=== PATIENT | male | born 1950 | race Caucasian/White ===

== ENCOUNTER 2018-11-30 10:08 | Emergency (ER) | payer MEDICARE, OTHER ==
[~2018-11-30] VITALS: Ht 182 cm; Wt 101.6 kg
--- NOTE | 2018-11-30 10:44 | ED Psychosocial ---
General Chief Complaint: Suicidal Ideation Risk Stated Complaint: SUICIDAL IDEATION Source: patient Exam Limitations: no limitations (LILIAN LONGORIA DO) History of Present Illness Date Seen by Provider: Nov 30, 2018 Time Seen by Provider: 10:25 Initial Comments The patient is a pleasant 68-year-old male presents for evaluation of depression and suicidal thoughts. He states that he was recently admitted to the [facility] in [place] for suicidal thoughts. He states that normally when he is taking his medications he does not have thoughts of self-harm. He currently is thinking about cutting his arms. He states that his medications were all refilled by the [facility] when he was discharged but he lost all of the prescriptions so has been off of his medications for the last few weeks. He denies any homicidal thoughts and is calm and answering questions appropriately. He is alert and oriented 4, calm, and appears to be in no distress this time. Timing/Duration: just prior to arrival Associated Symptoms: suicidal ideation (LILIAN LONGORIA DO) Allergies and Home Medications Allergies Coded Allergies: Penicillins (Verified Allergy, Unknown, swelling, 11/30/18) Patient Home Medication List Home Medication List Reviewed: Yes (LILIAN LONGORIA DO) Review of Systems Constitutional: no symptoms reported EENTM: no symptoms reported Respiratory: no symptoms reported Cardiovascular: no symptoms reported Gastrointestinal: no symptoms reported Genitourinary: no symptoms reported Musculoskeletal: no symptoms reported Skin: no symptoms reported Psychiatric/Neurological: Anxiety, Depressed (LILIAN LONGORIA DO) All Other Systems Reviewed Negative Unless Noted: Yes (LILIAN LONGORIA DO) Past Rkiarom-Rmfexg-Xwfkjd Hx Past Med/Social Hx: Reviewed Nursing Past Med/Soc Hx (LILIAN LONGORIA DO) Patient Social History Recent Foreign Travel: No (LILIAN LONGORIA DO) Physical Exam Vital Signs - First Documented 11/30/18 10:56 Temp 36.8 Pulse 72 Resp 16 B/P (MAP) 141/79 (99) Pulse Ox 96 (PAUL CASEY MD) Capillary Refill : (LILIAN LONGORIA DO) Height, Weight, BMI Height: '" Weight: lbs. oz. kg; BMI Method: General Appearance: WD/WN, no apparent distress HEENT: PERRL/EOMI, pharynx normal Neck: non-tender, full range of motion, supple Respiratory: chest non-tender, lungs clear, normal breath sounds, no res piratory distress Cardiovascular: normal peripheral pulses, no edema, no JVD, other (irregular rhythm) Gastrointestinal: normal bowel sounds, non tender, soft Extremities: normal range of motion, non-tender, normal inspection, no pedal edema Neurologic/Psychiatric: no motor/sensory deficits, alert, normal mood/affect Behavior/Eye Contact: cooperative, good eye contact, normal speech Thoughts/Hallucinations: normal thought pattern, other (reports thoughts of self harm, flat affect) Skin: normal color, warm/dry (LILIAN LONGORIA DO) Progress/Results/Core Measures Results/Orders Lab Results Laboratory Tests Test 11/30/18 10:16 11/30/18 10:42 Range/Units Urine Color YELLOW Urine Clarity CLEAR Urine pH 7.5 5-9 Urine Specific [place] 1.015 L 1.016-1.022 Urine Protein NEGATIVE NEGATIVE Urine Glucose (UA) NEGATIVE NEGATIVE Urine Ketones NEGATIVE NEGATIVE Urine Nitrite NEGATIVE NEGATIVE Urine Bilirubin NEGATIVE NEGATIVE Urine Urobilinogen 1.0 NORMAL MG/DL Urine Leukocyte Esterase NEGATIVE NEGATIVE Urine RBC (Auto) NEGATIVE NEGATIVE Urine RBC NONE /HPF Urine WBC 5-10 H /HPF Urine Squamous Epithelial Cells RARE /HPF Urine Crystals NONE /LPF Urine Bacteria TRACE /HPF Urine Casts NONE /LPF Urine Mucus SMALL H /LPF Urine Culture Indicated YES Urine Opiates Screen NEGATIVE NEGATIVE Urine Oxycodone Screen NEGATIVE NEGATIVE Urine Methadone Screen NEGATIVE NEGATIVE Urine Propoxyphene Screen NEGATIVE NEGATIVE Urine Barbiturates Screen NEGATIVE NEGATIVE Ur Tricyclic Antidepressants Screen NEGATIVE NEGATIVE Urine Phencyclidine Screen NEGATIVE NEGATIVE Urine Amphetamines Screen NEGATIVE NEGATIVE Urine Methamphetamines Screen NEGATIVE NEGATIVE Urine Benzodiazepines Screen POSITIVE H NEGATIVE Urine Cocaine Screen NEGATIVE NEGATIVE Urine Cannabinoids Screen NEGATIVE NEGATIVE White Blood Count 7.2 4.3-11.0 10^3/uL Red Blood Count 4.69 4.35-5.85 10^6/uL Hemoglobin 14.9 13.3-17.7 G/DL Hematocrit 44 40-54 % Mean Corpuscular Volume 93 80-99 FL Mean Corpuscular Hemoglobin 32 25-34 PG Mean Corpuscular Hemoglobin Concent 34 32-36 G/DL Red Cell Distribution Width 12.9 10.0-14.5 % Platelet Count 213 130-400 10^3/uL Mean Platelet Volume 10.3 7.4-10.4 FL Neutrophils (%) (Auto) 63 42-75 % Lymphocytes (%) (Auto) 23 12-44 % Monocytes (%) (Auto) 10 0-12 % Eosinophils (%) (Auto) 4 0-10 % Basophils (%) (Auto) 1 0-10 % Neutrophils # (Auto) 4.5 1.8-7.8 X 10^3 Lymphocytes # (Auto) 1.7 1.0-4.0 X 10^3 Monocytes # (Auto) 0.7 0.0-1.0 X 10^3 Eosinophils # (Auto) 0.3 0.0-0.3 10^3/uL Basophils # (Auto) 0.0 0.0-0.1 10^3/uL Sodium Level 137 135-145 MMOL/L Potassium Level 4.4 3.6-5.0 MMOL/L Chloride Level 101 98-107 MMOL/L Carbon Dioxide Level 24 21-32 MMOL/L Anion Gap 12 5-14 MMOL/L Blood Urea Nitrogen 8 7-18 MG/DL Creatinine 0.89 0.60-1.30 MG/DL Estimat Glomerular Filtration Rate > 60 BUN/Creatinine Ratio 9 Glucose Level 124 H 70-105 MG/DL Calcium Level 9.6 8.5-10.1 MG/DL Corrected Calcium 9.2 8.5-10.1 MG/DL Total Bilirubin 0.4 0.1-1.0 MG/DL Aspartate Amino Transf (AST/SGOT) 15 5-34 U/L Alanine Aminotransferase (ALT/SGPT) 12 0-55 U/L Alkaline Phosphatase 85 40-136 U/L Total Protein 7.4 6.4-8.2 GM/DL Albumin 4.5 3.2-4.5 GM/DL Salicylates Level 2.4 L 5.0-20.0 MG/DL Acetaminophen Level < 10 L 10-30 UG/ML Serum Alcohol < 10 <10 MG/DL (PAUL CASEY MD) Micro Results Microbiology 11/30/18 Urine Culture - Preliminary, Resulted (PAUL CASEY MD) Medications Given in ED Current Medications Medications Dose Ordered Sig/Carlos Route Start Time Stop Time Status Last Admin Dose Admin Acetaminophen 1,000 mg ONCE ONCE PO 11/30/18 16:30 11/30/18 16:31 DC 11/30/18 16:43 1,000 MG (PAUL CASEY MD) Vital Signs/I&O 11/30/18 11/30/18 11/30/18 10:56 16:00 18:32 Temp 36.8 35.6 36.0 Pulse 72 63 60 Resp 16 18 18 B/P (MAP) 141/79 (99) 142/65 (90) 145/66 Pulse Ox 96 98 99 (PAUL CASEY MD) Progress Progress Note : Progress Note @1330 - Patient medically cleared for evaluation by mental health professional. @1430 - Greg the psychiatric riveting machine operator has evaluated the pt and feels that he meets inpatient voluntary criteria. I agree. The pt prefers a non-[facility] facility. Greg is going to look for placement. Pt calm, cooperative, no complaints. @1800 - Awaiting bed placement. Pt medically cleared and stable. Pt care transferred to Dr. Manish Casey at this time. (LILIAN LONGORIA DO) EKG : Comment @1042 - Sinus rhythm, rate of 76, normal axis, occasional PACs, no acute ischemic findings noted, no STEMI, reviewed and interpreted by myself (LILIAN LONGORIA DO) Departure Impression Primary Impression: Depression Additional Impression: Suicidal thoughts Disposition: 65 XFER TO PSYCH HOSP/UNIT Condition: Stable Transfer Time Spoke to Accepting Phy: 18:[address] Gracia accepted transfer to [facility] Transfer Time: 18:25 Transfer Facility: [facility] Method of Transfer: (PAUL CASEY MD) Departure-Patient Inst. Referrals: NO,LOCAL PHYSICIAN (PCP/Family) Primary Care Physician LILIAN LONGORIA DO Nov 30, 2018 10:44 PAUL CASEY MD Nov 30, 2018 18:31
[2018-11-30 10:53] LABS: HEMATOCRIT 44 % (40-54); HEMOGLOBIN 14.9 G/DL (13.3-17.7); LYMPHOCYTES % (AUTO) 23 % (12-44); MEAN CORPUSCULAR HEMOGLOBIN 32 PG (25-34); MEAN CORPUSCULAR HGB CONC 34 G/DL (32-36); MEAN CORPUSCULAR VOLUME 93 FL (80-99); MEAN PLATELET VOLUME 10.3 FL (7.4-10.4); NEUTROPHILS % (AUTO) 63 % (42-75); PLATELET COUNT 213 10^3/uL (130-400); RED CELL DISTRIBUTION WIDTH 12.9 % (10.0-14.5); WHITE BLOOD COUNT 7.2 10^3/uL (4.3-11.0)
[2018-11-30 10:54] LABS: BASOPHILS % (AUTO) 1 % (0-10); EOSINOPHILS # (AUTO) 0.3 10^3/uL (0.0-0.3); EOSINOPHILS % (AUTO) 4 % (0-10); LYMPHOCYTES # (AUTO) 1.7 X 10^3 (1.0-4.0); MONOCYTES # (AUTO) 0.7 X 10^3 (0.0-1.0); MONOCYTES % (AUTO) 10 % (0-12); NEUTROPHILS # (AUTO) 4.5 X 10^3 (1.8-7.8)
[2018-11-30 11:01] LABS: BILIRUBIN,URINE NEGATIVE (NEGATIVE); CLARITY,URINE CLEAR; COLOR,URINE YELLOW; GLUCOSE, URINE (UA) NEGATIVE (NEGATIVE); KETONES,URINE NEGATIVE (NEGATIVE); LEUKOCYTE ESTERASE ,URINE NEGATIVE (NEGATIVE); NITRITE,URINE NEGATIVE (NEGATIVE); PH,URINE 7.5 (5-9); PROTEIN,URINE NEGATIVE (NEGATIVE)
[2018-11-30 11:02] LABS: BACTERIA,URINE TRACE /HPF; SQUAMOUS EPITHELIAL CELL,UR RARE /HPF
[2018-11-30 11:04] LABS: BENZODIAZEPINES SCREEN URINE POSITIVE (NEGATIVE)
[2018-11-30 11:05] LABS: AMPHETAMINE SCREEN, URINE NEGATIVE (NEGATIVE); BARBITURATE SCREEN URINE NEGATIVE (NEGATIVE); CANNABINOID SCREEN, URINE NEGATIVE (NEGATIVE); COCAINE SCREEN URINE NEGATIVE (NEGATIVE); METHADONE STAT NEGATIVE (NEGATIVE); METHAMPHETAMINE SCREEN URINE S NEGATIVE (NEGATIVE); OPIATE SCREEN URINE NEGATIVE (NEGATIVE); OXYCODONE STAT NEGATIVE (NEGATIVE); PROPOXYPHENE STAT NEGATIVE (NEGATIVE); TRICYCLIC ANTIDEPRESSANTS SCRE NEGATIVE (NEGATIVE)
[2018-11-30 11:25] LABS: BUN/CREATININE RATIO 9; CARBON DIOXIDE 24 MMOL/L (21-32); CHLORIDE 101 MMOL/L (98-107); CREATININE SERUM 0.89 MG/DL (0.60-1.30); GFR ESTIMATED > 60; GLUCOSE 124 MG/DL (70-105); POTASSIUM 4.4 MMOL/L (3.6-5.0); SODIUM 137 MMOL/L (135-145)
[2018-11-30 11:26] LABS: ACETAMINOPHEN < 10 UG/ML (10-30); ALANINE AMINOTRANSFERASE 12 U/L (0-55); ALBUMIN 4.5 GM/DL (3.2-4.5); ALKALINE PHOSPHATASE 85 U/L (40-136); BILIRUBIN,TOTAL 0.4 MG/DL (0.1-1.0); CALCIUM 9.6 MG/DL (8.5-10.1); SALICYLATE 2.4 MG/DL (5.0-20.0); TOTAL PROTEIN 7.4 GM/DL (6.4-8.2)
--- NOTE | 2018-11-30 11:37 | NUR ---
Patient is medically cleared for screening per Dr Braden. Called [facility] at this time to request a screening. Kacey Garza at office states a screener will call the ED as soon as possible.
--- NOTE | 2018-11-30 11:43 | NUR ---
Received call from Kacey Pantoja, who states there will be a delay until a screener will be available for consultation.
--- NOTE | 2018-11-30 12:35 | NUR ---
Donn from [facility] called and stated he would be here at approximately 1330 to screen patient.
--- NOTE | 2018-11-30 14:35 | NUR ---
Donn from [facility] states he is done with screening and is recommending a voluntary admission at this time.
--- NOTE | 2018-11-30 15:57 | NUR ---
information faxed to [facility]
[2018-11-30 16:00] VITALS: BP 142/65
[2018-11-30] MEDS ORDERED: ACETAMINOPHEN 500 MG TAB (TYLENOL) PO ONE (16:30)
--- NOTE | 2018-11-30 17:00 | NUR ---
Received call from Donn at [facility]. [facility] is reviewing the patients chart for possible admission and Donn is also working on contacting other possible admission sites.
--- NOTE | 2018-11-30 18:18 | NUR ---
Received call from [facility] stating they have an accepting doctor, Dr Gracia. Nurse number to call report is [phone].
--- NOTE | 2018-11-30 18:27 | NUR ---
Called Donn at [facility] to inform of patient acceptance to [facility]. Donn statedd he would work on transportation and call as soon as he had transportation arranged.
--- NOTE | 2018-11-30 18:29 | NUR ---
Patient informed of acceptance to [facility].
--- NOTE | 2018-11-30 18:31 | NUR ---
Donn called and stated transportation has been arranged and tanker driver, Isabela, will be here at 8 pm to take patient to [facility].
[2018-11-30 20:17] VITALS: BP 157/65
== END 2018-11-30 20:43 ==
LOC: ER FS 10:10
DX: F32.9 Major depressive disorder, single episode, unspecified (principal); R45.851 Suicidal ideations; Z88.0 Allergy status to penicillin
CPT/HCPCS: 36415; 80053; 80306; 80320; 80329; 81000; 85025; 87088; 93005